=== PATIENT | female | born 1940 | race Caucasian/White ===

== ENCOUNTER → 2020-03-10 15:18 | Outpatient (BNVA) | payer OTHER, SELFPAY | PROVIDERS: PCP Internal Medicine; Referring Provider Registered Nurse; Visit Provider Hospitalist | DX: J44.9 Chronic obstructive pulmonary disease, unspecified (principal); E88.01 Alpha-1-antitrypsin deficiency; C50.919 Malignant neoplasm of unspecified site of unspecified female breast; Z92.3 Personal history of irradiation | CPT/HCPCS: 99212 ==

== ENCOUNTER → 2020-09-09 15:49 | Outpatient (BNVA) | payer OTHER, SELFPAY | PROVIDERS: PCP Internal Medicine; Visit Provider Hospitalist | DX: J41.8 Mixed simple and mucopurulent chronic bronchitis (principal); E88.01 Alpha-1-antitrypsin deficiency; J40 Bronchitis, not specified as acute or chronic | CPT/HCPCS: 99212 ==

== ENCOUNTER → 2021-04-02 09:13 | Outpatient (BNVA) | payer OTHER, SELFPAY | PROVIDERS: PCP Internal Medicine; Visit Provider Hospitalist | DX: Z13.89 Encounter for screening for other disorder (principal) | CPT/HCPCS: Q3014 ==

== ENCOUNTER 2022-03-01 16:40 | Outpatient (REF) | payer OTHER, SELFPAY ==
--- NOTE | ~2022-03-01 | XR_ITS ---
EXAMINATION: XR CHEST CLINICAL INFORMATION: Dyspnea COMPARISON: Reports from previous chest CTA chest x-ray. Images not available. TECHNIQUE: 2 views of the chest were obtained. FINDINGS: The cardiac silhouette is upper normal in size. Hilar and mediastinal contours are unremarkable. There is a oval-shaped density projecting over the left upper lobe and first rib costochondral cartilage measuring 3 x 10 mm questionable for a nodule. This is not appreciated on the lateral view. There is a second nodule in the left midlung measuring 7 mm. There is increased density in projecting over the right upper lobe, right rib first costochondral cartilage and posterior fourth rib. It is uncertain whether this represents a nodule versus artifact due to overlapping bone structures. The lungs are otherwise clear. No pleural effusion or pneumothorax. Thoracolumbar scoliosis and degenerative changes of the spine. XR/XR chest 2V IMPRESSION: Bilateral nodular densities as described above. Unfortunately old chest x-ray and chest CT from [facility] are not available for comparison at this time. Comparison with old exams as initial evaluation recommended.
[2022-03-01 17:06] LABS: MANUAL DIFF FLAG NO
[2022-03-01 20:25] LABS: Basophils Percent Auto 0.7 % (0-2); Eosinophils Absolute Auto 0.1 X10*3/uL (0.0-0.4); Eosinophils Percent Auto 2.4 % (0-4); Hematocrit 30.9 % (37.0-47.0); Imm Gran Abs Auto 0.02 X10*3/uL (0.00-0.03); Imm Gran Pct Auto 0.3 % (0.0-0.4); Lymphocytes Absolute Auto 0.8 X10*3/uL (1.2-4.9); Lymphocytes Percent Auto 14.3 % (20-40); Mean Corpuscular HGB Conc 29.1 g/dl (31.0-35.0); Mean Corpuscular Hemoglobin 22.3 pg (27.0-33.0); Mean Corpuscular Volume 76.5 fL (80.0-98.0); Mean Platelet Volume 9.9 fL (9.4-12.3); Monocytes Absolute Auto 0.3 X10*3/uL (0.1-1.2); Monocytes Percent Auto 5.3 % (2-11); Neutrophils Absolute Auto 4.5 x10*3/uL (2.0-8.3); Platelet Count 216 X10*3/uL (160-400); Red Blood Count 4.04 X10*6/uL (4.20-5.50); Red Cell Distribution Width 17.3 % (11.0-16.0); White Blood Count 5.9 X10*3/uL (4.8-10.8)
[2022-03-01 20:54] LABS: Alanine Aminotransferase 33 U/L (0-31); Albumin Level 3.7 g/dL (3.5-5.0); Alkaline Phosphatase 159 U/L (39-117); Anion Gap 21 (12-20); Aspartate Amino Transferase 46 U/L (5-31); Bilirubin Direct 0.3 mg/dL (0.0-0.5); Bilirubin Total 0.6 mg/dL (0.0-1.0); Blood Urea Nitrogen 15 mg/dL (9-16); Calcium 9.1 mg/dL (8.4-10.2); Carbon Dioxide 18 mmol/L (22-29); Chloride 108 mmol/L (96-108); Estimated Glomerular Filt Rate 36; Glucose Random 154 mg/dL (60-115); Sodium 143 mmol/L (135-145); Total Protein 7.4 g/dL (6.5-8.0)
[2022-03-01 21:20] LABS: Erythrocyte Sedimentation Rate 58 MM/HR (0-20)
[2022-03-08 14:32] LABS: Alpha 1 Anti-trypsin 186 mg/dL (83-199)
== END 2022-03-01 16:41 | disposition home or self-care (01) ==
LOC: HO.XRAY 16:40
PROVIDERS: PCP Internal Medicine; Visit Provider Hospitalist
DX: E88.01 Alpha-1-antitrypsin deficiency (principal); J41.8 Mixed simple and mucopurulent chronic bronchitis; R06.00 Dyspnea, unspecified; R00.0 Tachycardia, unspecified; R01.1 Cardiac murmur, unspecified
CPT/HCPCS: 36415; 71046; 80048; 80076; 82103; 84484; 85025; 85652; 94618; 99212

== ENCOUNTER → 2022-03-08 14:56 | Outpatient (REF) | payer OTHER, SELFPAY ==
--- NOTE | 2022-03-08 15:01 | ECG_ITS ---
Test Reason : dyspnea Blood Pressure : / mmHG Vent. Rate : 098 BPM Atrial Rate : 098 BPM P-R Int : 166 ms QRS Dur : 074 ms QT Int : 362 ms P-R-T Axes : 069 034 069 degrees QTc Int : 462 ms Normal sinus rhythm Nonspecific ST abnormality Abnormal ECG No previous ECGs available Referred By: Elton Crews Electronically Signed By:MARY FUNES MD
== END ==
LOC: HO.CARD 14:56
PROVIDERS: Visit Provider Hospitalist
DX: R06.00 Dyspnea, unspecified (principal)
CPT/HCPCS: 93005

== ENCOUNTER 2022-03-31 16:28 | Outpatient (REF) | payer OTHER, SELFPAY ==
--- NOTE | ~2022-03-31 | CT_ITS ---
EXAMINATION: CT CHEST WITHOUT CONTRAST CLINICAL INFORMATION: Pulmonary nodules COMPARISON: Chest x-ray March 01, 2022 TECHNIQUE: Multidetector volumetric CT imaging of the chest was done. Axial MIP volume rendering provided. Sagittal and coronal reformatted images were obtained. This CT examination was performed using dose optimization techniques as appropriate, variously including the following: *Automated exposure control *Adjustment of mA and/or kV according to patient size (this includes techniques or standardized protocols for targeted exams where dose is matched to indication/reason for exam; i.e. extremities or head) *Use of iterative reconstruction technique DLP: 235 mGy-cm FINDINGS: The heart is normal in size. Coronary artery and mitral annulus calcifications are noted. There is no pericardial effusion. Normal caliber thoracic aorta. There are a few normal-sized mediastinal lymph nodes present. No gross hilar lymphadenopathy. There appears to be postsurgical changes of both breasts. No axillary lymphadenopathy bilaterally. Central airways are patent. Lungs are adequately aerated. Moderate emphysematous changes are noted. There is no lobar consolidation. No pleural effusion or pneumothorax. There is some atelectasis versus scarring of the right lung base with an 8mm nodular focus, nonspecific (image [id number], series 7). There is a 4 mm subpleural pulmonary nodule of the lateral left lung base (image [id number], series 7). There are several calcified pulmonary nodules scattered throughout the lungs. Visualized portion of the upper abdomen demonstrate diffusely decreased liver attenuation suggesting hepatic steatosis. There are coarse calcifications within the hepatic dome which are nonspecific. Splenic calcifications suggest prior granulomatous disease. Partially visualized right renal cyst. Hypodensity of the left kidney is inaccurately characterized. There is a large, wide necked ventral abdominal hernia which contains a portion of the stomach. There is suggestion of mesh from prior hernia repair. There is a well-defined superficial fluid collection anteriorly which is only partially visualized but measures at least 22 x 5 x 10 cm. Diffuse osteopenia. Scoliotic and degenerative changes of the spine. CT/CT chest wo IV con IMPRESSION: 1. Moderate emphysema. 2. There is some atelectasis versus scarring of the right lung base with an 8 mm nodular focus, nonspecific. 3. 4 mm subpleural pulmonary nodule the lateral left lung base. 4. Evidence of prior granulomatous disease. 5. Large, wide necked ventral abdominal hernia which contains a portion of the stomach. 6. There is a well-defined superficial fluid collection anteriorly which is only partially visualized but measures at least 22 x 5 x 10 cm. This is a nonspecific finding but may represent chronic seroma from prior hernia repair surgery. Clinical correlation is recommended. CT imaging of the abdomen and pelvis would be required for a more detailed evaluation of this finding. Fleischner guidelines were followed.
== END 2022-03-31 16:29 | disposition home or self-care (01) ==
LOC: HO.CT 16:28
PROVIDERS: PCP Internal Medicine; Visit Provider Hospitalist
DX: R91.8 Other nonspecific abnormal finding of lung field (principal)
CPT/HCPCS: 71250

== ENCOUNTER → 2022-05-31 14:10 | Outpatient (BNVA) | payer OTHER, SELFPAY | PROVIDERS: PCP Internal Medicine; Visit Provider Internal Medicine Cardiovascular Disease | DX: R06.00 Dyspnea, unspecified (principal); R03.0 Elevated blood-pressure reading, without diagnosis of hypertension; E88.01 Alpha-1-antitrypsin deficiency; J44.9 Chronic obstructive pulmonary disease, unspecified; I10 Essential (primary) hypertension | CPT/HCPCS: 99202 ==

== ENCOUNTER → 2022-07-19 13:00 | Outpatient (REF) | payer OTHER, SELFPAY ==
--- NOTE | 2022-07-19 13:07 | CA_ITS ---
Transthoracic Echocardiogram Patient (Last, First, Middle): Riley Guzman L Gender: Female Date of : 1940 Age: 82 Procedure Date: 07/19/2022 Procedure Type: Transthoracic Echocardiogram Location: OP Height: 152.4 cm Weight: 85.73 kg BSA: 1.82 m2 Heart Rate: 96 bpm BP: 110 / 60 mmHg Management Information Systems Director: LAUREN Referring MD: Zhou Short MD Symptoms: R06.00 - Dyspnea, unspecified Study Quality: Adequate/Contrast ECG Rhythm: Sinus Conclusions: - The left ventricular systolic function is normal. The calculated ejection fraction is 62% by biplane method. - There is mild calcification of the aortic valve. - There is mild mitral annular calcification. Findings Procedure Information Contrast agent, definity, is being given per protocol without apparent complications. Left Ventricle Normal left ventricular cavity size. There is mildly increased left ventricular wall thickness. The left ventricular systolic function is normal. The calculated ejection fraction is 62% by biplane method. There is no evidence of regional wall motion abnormalities. Diastolic function is normal for age. Right Ventricle Normal right ventricular cavity size. There is low normal right ventricular systolic function. Atria Both atria are normal in size. Aortic Valve There is a normal trileaflet aortic valve. There is mild calcification of the aortic valve. There is no aortic valve stenosis. There is no aortic valve regurgitation. Mitral Valve There is mild mitral annular calcification. There is no mitral valve regurgitation. There is no mitral valve stenosis. Pulmonic Valve The pulmonic valve is likely normal. Tricuspid Valve There is mild tricuspid valve regurgitation. There is no evidence of pulmonary hypertension. Great Vessels The asc aorta is normal in size. Venous The inferior vena cava is normal in size and collapses less than 50% with inspiration. Pericardium/Pleural There is no evidence of pericardial effusion. Prior Study Comparison No prior study available for comparison. Measurements 2D Linear Measurements IVSd: 1.29 0.6-0.9/0.6-1.0 cm LVIDd: 3.40 3.9-5.3/4.2-5.9 cm LVIDd Index: 1.87 2.4-3.2/2.2-3.1 cm/m2 LVIDs: 1.68 2.0-3.6 cm LVPWd: 1.16 0.7-1.1 cm LA Diam: 3.20 2.7-3.8/3.0-4.0 cm LAIDs Index: 1.76 1.5-2.3 cm/m2 LV Mass: 167.33 67-162/88-224 g LV Mass Index: 91.94 43-95/49-115 g/m2 LVOT Diam: 1.90 3.0+(-)1.3 cm 2D Systolic Function EF 4C: 58.50 >55% EF 2C: 65.90 >55% EF BiP: 61.70 >55% Mitral Valve MV Pk E: 0.83 MV PK A: 1.22 MV Decel Time: 157.00 E/A: 0.70 E'Lateral: 7.01 E'Medial: 6.40 E/E' Med: 13.00 E/E' Lat: 11.90 PHT: 46.00 MVA PHT: 4.78 [place]: 5.29 Aortic Valve AoV Pk Vipin: 1.29 AoV Mn Vipin: 1.00 AoV VTI: 0.23 AoV Pk Grad: 7.00 Aov Mn Grad: 4.00 RUBENS Cont.VTI: 2.48 LVOT LVOT Pk Vipin: 1.18 LVOT Mn Vipin: 0.86 LVOT VTI: 0.20 LVOT Pk Grad: 6.00 LVOT Mn Grad: 3.00 LVOT Diam: 1.90 LVOT Area: 2.84 Diastolic Function MV Pk E: 0.83 MV Pk A: 1.22 E/A: 0.70 E'Medial: 6.40 E/E' Med: 13.00 E' Laterial: 7.01 E/E' Lat: 11.90 Right Ventricle TAPSE (mm): 16.50 TVS' Vipin: 11.90 Tricuspid Valve TR Pk Vipin: 2.38 TR Pk Grad: 23.00 RA Press: 8.00 RVSP: 31.00 Great Vessels Aorta Sinus of Valsalva: 2.70 2.0-3.5 cm Ao Asc: 3.00 2.1-3.4 cm Pulmonary Valve PV Pk Vipin: 0.79 Peak PV Grad: 2.00 Updated in Other Vendor System with Status of Final Branden Harper MD electronically signed on 07/20/2022 12:18:20 PM with status of Final
== END ==
LOC: HO.CARD 13:00
PROVIDERS: Visit Provider Internal Medicine Cardiovascular Disease
DX: R06.00 Dyspnea, unspecified (principal)
CPT/HCPCS: 93306; Q9957

== ENCOUNTER → 2022-08-02 09:53 | Outpatient (REF) | payer OTHER, SELFPAY ==
--- NOTE | ~2022-08-02 | NM_ITS ---
Lexiscan Myocardial perfusion study Indication: Shortness of breath, assess for coronary disease and ischemia Technique: The patient was brought in for a Lexiscan perfusion study on 08/02/2022 and was injected 0.4 mg of Lexiscan intravenously. Within a minute of this injection 30 mCi of sestamibi was given intravenously. Images were obtained using the SPECT gamma camera interlaced with the gating device. Images were obtained in supine position. Resting perfusion study was performed on 08/04/2022. Patient was administered 30 mCi of sestamibi intravenously at rest. Images were then obtained in supine position. Images were processed with the software and compared side to side in short axis, horizontal long axis and vertical long axis views. Total DLP 118mGy-cm. Findings: Raw acquisition reviewed. Left arm by the patient's side. The stress perfusion study showed no significant no significant perfusion abnormality. Both uncorrected as well as CT attenuation corrected images were reviewed. The gated study shows normal LV systolic function with calculated LVEF of 72%. LV cavity is normal in size. The gated study shows normal wall thickening and contraction of segments. Resting study shows no significant perfusion abnormality. Both uncorrected as well as CT attenuation corrected images were reviewed. Gating at rest reveals normal wall motion with ejection fraction at 56%. The findings are consistent with no reversible or fixed perfusion abnormality. NM/NM nehal perf SPECT rest & str Impression: 1. Myocardial perfusion imaging study shows normal myocardial perfusion. 2. Gated LVEF is 72% during stress and 56% during rest. 3. Transient ischemic dilatation not present. EKG component of the test reported separately.
--- NOTE | 2022-08-02 09:56 | CA_ITS ---
Acquisition Time: 2022-08-02 10:36:13 Total Exercise Time: 00:02:00 Test Indications: CP TACHYCARDIA Medications: SEE H Protocol: LEXISCAN Max HR: 114 BPM 82% of Pred: 138 BPM Max BP: 118/064 mmHG Max Work Load: 1.0 METS Pharmacological stress test with Lexiscan injection while patient is sitting and kicking her legs, without anignal symptoms, without arryhtmias, with normotensive response to injection, with nondiagnostic EKG for ischemia. In recovery the Lexiscan was reversed with Aminophylline 75mg IVP. Nuclear images pending. Test reviewed with Dr. Short. Referred By: Zhou Short Overread By: HEATHER ESPINOZA
== END ==
LOC: HO.CARD 09:53
PROVIDERS: Visit Provider Internal Medicine Cardiovascular Disease
DX: R06.00 Dyspnea, unspecified (principal)
CPT/HCPCS: 78452; 93017; A9500; J0280; J2785

== ENCOUNTER → 2022-08-16 15:18 | Outpatient (BNVA) | payer OTHER, SELFPAY | PROVIDERS: PCP Internal Medicine; Visit Provider Internal Medicine Cardiovascular Disease | DX: R06.00 Dyspnea, unspecified (principal) | CPT/HCPCS: 99212 ==

== ENCOUNTER 2023-03-28 14:58 | Outpatient (AMB) | payer OTHER, SELFPAY ==
[2023-03-28 15:12] VITALS: PULSE 90; O2SAT 96; BMI 36.1
--- NOTE | 2023-03-28 15:12 | MHC.OFFVIS ---
Intake Vital Signs 03/28/23 15:12 Height 5 ft Weight 185 lb BMI 36.1 Pulse 90 Pulse Source Pulse Oximeter Pulse Oximetry (%) 96 Oxygen Delivery Method Room Air Intake Visit Reasons: copd Adaptive Physical Education Teacher Required: No Allergies alprazolam [Xanax] Allergy (Severe, Verified 03/28/23 15:14) Rash PCN Allergy (Severe, Uncoded 03/28/23 15:14) Swelling Sulfa Drugs Allergy (Severe, Uncoded 03/28/23 15:14) Rash HPI HPI Comments History of Present Illness Details The patient is a 83-year-old woman with a known history of alpha 1 antitrypsin deficiency along with COPD. She is on alpha-1 antitrypsin therapy. She continues to use her respiratory therapy. Has been complaining of dyspnea on exertion. Ofcu-rg-svnrrfqu in severity. Does worsen with activity. She has noticed increased weight gain the last several months. No recent exacerbations or need for prednisone or antibiotics at this time. However, she has been developing significant tenderness over the left breast. She has noticed some swelling and induration. She states that when she was much younger she did have an abscess that required drainage. In the meantime she has been getting chemotherapy for breast cancer at this time. When she finishes her chemotherapy she will have surgery and potentially then radiation therapy. 03/01/2022 the patient is here for a pulmonary follow-up visit. The patient complains of worsening dyspnea on exertion. Appears to be moderate to severe. Denies any chest pains or pressure. Typically shortness of breath gets better with rest.Her sister has been very concerned and she actually came with her. The patient also has been very depressed and has not been wanting to do her typical activities of daily living or even leave the house. There is also question if she is using her medications due to her depression. Her sisters very concerned. During the visit we did go for 6 minutes walk test. Her saturations actually got better with ambulation up to 94%. However her dyspnea was significant 8/10 and 9/10 specially when heart rate increased of 120. it took a while to have a heart rate settle down. On examination sleep was tachycardic and also had a mild murmur. New murmurs new. In view of the findings I will have the patient undergo blood work in addition to a chest x-ray and an EKG. She needs to be referred also to Cardiology for further evaluation. The sister also documents that the patient has had some word-finding issues at times. The episodes are intermittent in the last only minutes. Explained to the patient and also her sister that if she ever has episodes like this she needs to go to the ER for the possibility of a TIA or stroke. This may be red flags that should be taking stairs sleep the patient understands to that if her respiratory symptoms worsen she also needs to go to the ER for further evaluation as the symptoms are pretty significant. In the meantime she will start taking an aspirin and she will follow-up with primary care and also Cardiology. From a off 1 antitrypsin deficiency standpoint we have her undergo blood work to assess her kidney function and also her liver function and also check her alpha-1 levels. 03/28/2023 the patient is here for a pulmonary follow-up visit. The patient complains of worsening dyspnea on exertion. Moderate severity. She is wondering if she needs oxygen. She continues use all respiratory therapy. Without any significant improvement. A few weeks ago she had a lot of shortness of breath and also lower extremity edema. Although, this point her symptoms have improved. We did go for brief walking oximetry the patient did not desaturate enough to require oxygen supplementation. Will go ahead and request an overnight oximetry test. My suspicion is the patient has been having meals on wheels and they have been high in salt intake. I do believe that her lower extremity edema and her shortness of breath are related due to volume overload status. Therefore, we did talk about the importance of low-sodium diet. The patient did take some old Lasix she had at home and therefore her symptoms did improve at that point. All send him some Lasix that she can use for 3 days just to improve her overall volume status. 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 Explained to her again the most important thing to do was to continue with low-sodium diet. The patient also will get the overnight oximetry test to see if she qualifies for oxygen with sleep. She continues to get her alpha-1 infusions. Therapy has been affecting beneficial. Will have to make sure that we check her liver function studies and also chemistries to make sure she is tolerating the medicine well. The patient has last CT scan was back in January 2022 demonstrating multiple pulmonary nodules and emphysema. Therefore, will have her undergo a repeat CT scan of the chest to follow-up with the nodules and also pulmonary function study to assess her COPD and alpha-1 antitrypsin deficiency. [facility] Medical History Abnormal chest x-ray with multiple lung nodules Kxgba-1-ebiyhaymlux deficiency Breast cancer Bronchitis COPD (chronic obstructive pulmonary disease) Depression Dyspnea Murmur Pulmonary nodules Tachycardia Family History Other Hmwyd-7-ebpqbiaznpe deficiency Social History Patient Tobacco Use Status: Former Tobacco user Tobacco use type: Cigarette Years Smoked: 50 years Review of Systems Const Reports fatigue, Denies night sweats and Reports weight gain ENT Denies change in voice, Denies lip swelling, Denies mouth pain, Reports nasal congestion, Reports nasal discharge and Denies tongue swelling Card Denies chest pain, Reports leg edema, Reports dyspnea and Reports dyspnea on exertion Resp Denies change in phlegm color, Denies chest congestion, Reports cough, Reports dyspnea and Reports dyspnea on exertion GI Denies abdominal pain Musc Denies no additional complaints Neuro Denies Neuro-related abnormal movements and Denies Abnormal speech present Psych Reports as per HPI and Reports depression Endo Reports fatigue Juan/Lymph Denies easy bleeding and Denies lymphadenopathy Aller/Immun Denies lip swelling and Denies tongue swelling Physical Exam Vital Signs: Last Vital Signs Pulse 90 03/28/23 15:12 Pulse Ox 96 03/28/23 15:12 Oxygen Delivery Method Room Air 03/28/23 15:12 BMI result Body Mass Index 36.1 Const General: cooperative, comfortable, alert and awake Nutritional Appearance: obese Orientation/consciousness: patient oriented x3 Neck Neck: Yes trachea midline, Yes supple and Yes no JVD Resp Effort & Inspection: normal respiratory effort and prolonged expiratory phase Auscultation: diminished lung sounds Cardio Rate: regular rate and tachycardic Rhythm: regular rhythm Heart sounds: S1 normal heart sound present, S2 normal heart sound present, no click, no gallops and no murmurs GI Auscultation: normal bowel sounds Skin General skin exam: no rashes or lesions noted Neuro General: patient oriented x3 and no focal motor deficits Speech: No Abnormal speech present Extrem General: No clubbing, No cyanosis and Yes edema Office Procedures 6 Minute Walk Time:: 19:49 SPO2 % at rest: 95 Pulse at rest: 101 SPO2 % during excercise: 92 Pulse during excercise: 110 Distance in yards walked: 100 Nata Score: 4 [id number] - 6 Minute Walk Assessment & Plan Assessment & Plan (1) COPD (chronic obstructive pulmonary disease): Code(s): J44.9 - Chronic obstructive pulmonary disease, unspecified Qualifiers: COPD type: chronic bronchitis Chronic bronchitis type: mixed simple and mucopurulent Qualified Code(s): J41.8 - Mixed simple and mucopurulent chronic bronchitis (2) Aakos-7-favpcomzdxl deficiency: Code(s): E88.01 - Zomes-0-igxerezsbdy deficiency (3) Dyspnea: Code(s): R06.00 - Dyspnea, unspecified Qualifiers: Dyspnea type: dyspnea on exertion Qualified Code(s): R06.09 - Other forms of dyspnea (4) Tachycardia: Code(s): R00.0 - Tachycardia, unspecified Plan Aralast qweek Continue Breo and Spiriva Continue Singulair lasix x 3 days overnight oximetry on RA CT chest PFTs F/U 2 months Orders: Orders Overnight Pulse Oximetry Today CT chest wo IV con Today R91.8 - Other nonspecific abnormal finding of lung field PFT pulmonary function test Today E88.01 - Xbrwm-9-hwbltuetyoq deficiency Medications: New furosemide (Lasix) 20 mg PO DAILY 7 tabs 0RF 7 days E88.01 - Mxwnp-5-qwdbgfrohtt deficiency Coding Level of Care Code Est Pt Level 4 (31585) Diagnoses Mixed simple and mucopurulent chronic bronchitis J41.8 COPD type: chronic bronchitis Chronic bronchitis type: mixed simple and mucopurulent Eklrz-5-pzyhjryjuty deficiency E88.01 Dyspnea on exertion R06.09 Dyspnea type: dyspnea on exertion Tachycardia R00.0 CPT Codes Coding ([id number]) Time Spent (min) 18
[2023-03-28 19:48] VITALS: PULSE 101; O2SAT 95
== END 2023-03-28 15:49 | disposition home or self-care (01) ==
PROVIDERS: PCP Internal Medicine; Visit Provider Hospitalist
DX: J41.8 Mixed simple and mucopurulent chronic bronchitis (principal); E88.01 Alpha-1-antitrypsin deficiency; R06.09 Other forms of dyspnea; R00.0 Tachycardia, unspecified
CPT/HCPCS: 94618; 99214

== ENCOUNTER → 2023-03-28 14:58 | Outpatient (BNVA) | payer OTHER, SELFPAY | PROVIDERS: PCP Internal Medicine; Visit Provider Hospitalist | DX: J41.8 Mixed simple and mucopurulent chronic bronchitis (principal); E88.01 Alpha-1-antitrypsin deficiency; R06.09 Other forms of dyspnea; R00.0 Tachycardia, unspecified | CPT/HCPCS: 94618; 99212 ==

== ENCOUNTER 2023-07-11 14:49 | Outpatient (AMB) | payer OTHER, SELFPAY ==
[2023-07-11 15:03] VITALS: PULSE 92; O2SAT 94; BMI 35.9
--- NOTE | 2023-07-11 15:03 | A.OFFVIS_ITS ---
Intake Vital Signs 07/11/23 15:03 Height 5 ft Weight 184 lb BMI 35.9 Pulse 92 Pulse Source Pulse Oximeter Pulse Oximetry (%) 94 Oxygen Delivery Method Room Air Intake Visit Reasons: copd Early Morning Required: No Allergies alprazolam [Xanax] Allergy (Severe, Verified 07/11/23 15:05) Rash PCN Allergy (Severe, Uncoded 07/11/23 15:05) Swelling Sulfa Drugs Allergy (Severe, Uncoded 07/11/23 15:05) Rash HPI HPI Comments History of Present Illness Details The patient is a 83-year-old woman with a known history of alpha 1 antitrypsin deficiency along with COPD. She is on alpha-1 antitrypsin therapy. She continues to use her respiratory therapy. Has been complaining of dyspnea on exertion. Mtcy-ag-xwvoevsn in severity. Does worsen with activity. She has noticed increased weight gain the last several months. No recent exacerbations or need for prednisone or antibiotics at this time. However, she has been developing significant tenderness over the left breast. She has noticed some swelling and induration. She states that when she was much younger she did have an abscess that required drainage. In the meantime she has been getting chemotherapy for breast cancer at this time. When she finishes her chemotherapy she will have surgery and potentially then radiation therapy. 03/01/2022 the patient is here for a pulm onary follow-up visit. The patient complains of worsening dyspnea on exertion. Appears to be moderate to severe. Denies any chest pains or pressure. Typically shortness of breath gets better with rest.Her sister has been very concerned and she actually came with her. The patient also has been very depressed and has not been wanting to do her typical activities of daily living or even leave the house. There is also question if she is using her medications due to her depression. Her sisters very concerned. During the visit we did go for 6 minutes walk test. Her saturations actually got better with ambulation up to 94%. However her dyspnea was significant 8/10 and 9/10 specially when heart rate increased of 120. it took a while to have a heart rate settle down. On examination sleep was tachycardic and also had a mild murmur. New murmurs new. In view of the findings I will have the patient undergo blood work in addition to a chest x- ray and an EKG. She needs to be referred also to Cardiology for further evaluation. The sister also documents that the patient has had some word- finding issues at times. The episodes are intermittent in the last only minutes. Explained to the patient and also her sister that if she ever has episodes like this she needs to go to the ER for the possibility of a TIA or stroke. This may be red flags that should be taking stairs sleep the patient understands to that if her respiratory symptoms worsen she also needs to go to the ER for further evaluation as the symptoms are pretty significant. In the meantime she will start taking an aspirin and she will follow-up with primary care and also Cardiology. From a off 1 antitrypsin deficiency standpoint we have her undergo blood work to assess her kidney function and also her liver function and also check her alpha-1 levels. 03/28/2023 the patient is here for a pulmonary follow-up visit. The patient complains of worsening dyspnea on exertion. Moderate severity. She is wondering if she needs oxygen. She continues use all respiratory therapy. Without any significant improvement. A few weeks ago she had a lot of shortness of breath and also lower extremity edema. Although, this point her symptoms have improved. We did go for brief walking oximetry the patient did not desaturate enough to require oxygen supplementation. Will go ahead and request an overnight oximetry test. My suspicion is the patient has been having meals on wheels and they have been high in salt intake. I do believe that her lower extremity edema and her shortness of breath are related due to volume overload status. Therefore, we did talk about the importance of low-sodium diet. The patient did take some old Lasix she had at home and therefore her symptoms did improve at that point. All send him some Lasix that she can use for 3 days just to improve her overall volume status. She will talk to her primary care gang worker regarding additional diuresis. Explained to her again the most important thing to do was to continue with low-sodium diet. The patient also will get the overnight oximetry test to see if she qualifies for ox ygen with sleep. She continues to get her alpha-1 infusions. Therapy has been affecting beneficial. Will have to make sure that we check her liver function studies and also chemistries to make sure she is tolerating the medicine well. The patient has last CT scan was back in January 2022 demonstrating multiple pulmonary nodules and emphysema. Therefore, will have her undergo a repeat CT scan of the chest to follow-up with the nodules and also pulmonary function study to assess her COPD and alpha-1 antitrypsin deficiency. 07/11/2023 the patient is here for a pulmonary follow-up visit. Overall she is doing okay. She does complaint of dyspnea on exertion. Moderate severity. She is also being very careful because she has difficulty walking. She does use a cane although she should be using a walker per her sister. The patient did have a bone density test demonstrating some osteoporosis already. I did emphasize the point. In the meantime she continues with her augmentation t herapy for alpha-1 antitrypsin deficiency. She tolerates the therapy well on a weekly basis. Has not had any issues with access. We did look at her blood work that she had a [facility]. Back in November her AST and alk phosphatase was slightly elevated. Otherwise her chemistries were better and creatinine function appeared to be normal. Will go ahead and repeat her blood work at this time. the patient was wondering about the level of COPD. She has not had PFTs in a few years. Will go ahead and request PFTs for her next visit. She should also have a chest x-ray. Her last CT scan of the chest back in 2021 and was stable Pulmonary nodules and emphysema. [facility] Medical History Abnormal chest x-ray with multiple lung nodules Qlefq-8-fclbtkrpdtg deficiency Breast cancer Bronchitis COPD (chronic obstructive pulmonary disease) Depression Dyspnea Murmur Pulmonary nodules Tachycardia Family History Other Siuxt-9-jupqldfznzo deficiency Social History Patient Tobacco Use Status: Former Tobacco user Tobacco use type: Cigarette Years Smoked: 50 years Review of Systems Const Reports fatigue, Denies night sweats and Reports weight gain ENT Denies change in voice, Denies lip swelling, Denies mouth pain, Reports nasal congestion, Reports nasal discharge and Denies tongue swelling Card Denies chest pain, Reports leg edema, Reports dyspnea and Reports dyspnea on exertion Resp Denies change in phlegm color, Denies chest congestion, Reports cough, Reports dyspnea and Reports dyspnea on exertion GI Denies abdominal pain Musc Reports abnormal gait Neuro Denies Neuro-related abnormal movements, Denies Abnormal speech present and Reports abnormal gait Psych Reports as per HPI and Reports depression Endo Reports fatigue Juan/Lymph Denies easy bleeding and Denies lymphadenopathy Aller/Immun Denies lip swelling and Denies tongue swelling Physical Exam Vital Signs: Last Vital Signs Pulse 92 07/11/23 15:03 Pulse Ox 94 07/11/23 15:03 Oxygen Delivery Method Room Air 07/11/23 15:03 BMI result Body Mass Index 35.9 Const General: cooperative, comfortable, alert and awake Nutritional Appearance: obese Orientation/consciousness: patient oriented x3 Neck Neck: Yes trachea midline, Yes supple and Yes no JVD Resp Effort & Inspection: normal respiratory effort and prolonged expiratory phase Auscultation: diminished lung sounds Cardio Rate: regular rate and tachycardic Rhythm: regular rhythm Heart sounds: S1 normal heart sound present, S2 normal heart sound present, no click, no gallops and no murmurs GI Auscultation: normal bowel sounds Skin General skin exam: no rashes or lesions noted Neuro General: patient oriented x3 and no focal motor deficits Speech: No Abnormal speech present Extrem General: No clubbing, No cyanosis and Yes edema Assessment & Plan Assessment & Plan (1) COPD (chronic obstructive pulmonary disease): Code(s): J44.9 - Chronic obstructive pulmonary disease, unspecified Qualifiers: COPD type: chronic bronchitis Chronic bronchitis type: mixed simple and mucopurulent Qualified Code(s): J41.8 - Mixed simple and mucopurulent chronic bronchitis (2) Dyspnea: Code(s): R06.00 - Dyspnea, unspecified Qualifiers: Dyspnea type: dyspnea on exertion Qualified Code(s): R06.09 - Other forms of dyspnea (3) Tachycardia: Code(s): R00.0 - Tachycardia, unspecified (4) Mapnq-1-dxeldryoatz deficiency: Code(s): E88.01 - Lkiqi-6-dikbabgtthr deficiency (5) Pulmonary nodules: Code(s): R91.8 - Other nonspecific abnormal finding of lung field Plan Aralast qweek Continue Breo and Spiriva Continue Singulair CXR PFTs Bloodwork F/U 3 months Orders: Orders Erythrocyte Sedimentation Rate Today E88.01 - Hpzpl-5-yjcmbpfjzul deficiency XR chest 2V Today R91.8 - Other nonspecific abnormal finding of lung field PFT pulmonary function test Today E88.01 - Revne-9-luxliyyeerz deficiency Basic Metabolic Panel Today E88.01 - Angla-6-jqrfwjmghfa deficiency Liver Panel Today E88.01 - Olrei-3-tjckozvhbvk deficiency Alpha 1 Anti-trypsin Today E88.01 - Wtwvv-3-rzebzgysmev deficiency Coding Level of Care Code Est Pt Level 4 (69123) Diagnoses Mixed simple and mucopurulent chronic bronchitis J41.8 COPD type: chronic bronchitis Chronic bronchitis type: mixed simple and mucopurulent Dyspnea on exertion R06.09 Dyspnea type: dyspnea on exertion Tachycardia R00.0 Rwiod-8-zywqsmzyirj deficiency E88.01 Pulmonary nodules R91.8 Time Spent (min) 17
== END 2023-07-11 15:34 | disposition home or self-care (01) ==
PROVIDERS: PCP Internal Medicine; Visit Provider Hospitalist
DX: J41.8 Mixed simple and mucopurulent chronic bronchitis (principal); R06.09 Other forms of dyspnea; R00.0 Tachycardia, unspecified; E88.01 Alpha-1-antitrypsin deficiency; R91.8 Other nonspecific abnormal finding of lung field
CPT/HCPCS: 99214

== ENCOUNTER → 2023-07-11 14:49 | Outpatient (BNVA) | payer OTHER, SELFPAY | PROVIDERS: PCP Internal Medicine; Visit Provider Hospitalist | DX: J41.8 Mixed simple and mucopurulent chronic bronchitis (principal); R06.09 Other forms of dyspnea; R00.0 Tachycardia, unspecified; E88.01 Alpha-1-antitrypsin deficiency; R91.8 Other nonspecific abnormal finding of lung field | CPT/HCPCS: 99212 ==

== ENCOUNTER 2023-12-27 15:15 | Outpatient (AMB) | payer OTHER, SELFPAY ==
--- NOTE | 2023-12-27 15:16 | MHC.OFFVIS ---
Vital Signs 12/27/23 15:17 Height 5 ft Weight 177 lb 8 oz BMI 34.7 BP 128/64 Blood Pressure Location Rt brachial Position Sitting Pulse 81 Pulse Source Pulse Oximeter Pulse Oximetry (%) 96 Oxygen Delivery Method Room Air Intake Visit Reasons: Increased shortness of breath Allergies alprazolam [Xanax] Allergy (Severe, Verified 12/27/23 15:23) Rash PCN Allergy (Severe, Uncoded 12/27/23 15:23) Swelling Sulfa Drugs Allergy (Severe, Uncoded 12/27/23 15:23) Rash HPI HPI Increased shortness of breath: Details: Riley is a pleasant 83 year old, never smoker, with underlying alpha 1 antitrypsin deficiency, COPD and h/o breast cancer. She is under he care of Dr. Crews and presents for an acute visit. She was previously prescribed Breo and Spiriva, however reports she has not been using for months. She attributes this to depression and unmotivated to use. She does admit that she has more help on a daily basis and will attempt to restart respiratory regimen. She also reports worsening BLE edema for the last 1.5 months and notes dyspnea has been worsening for 1 month. She denies fevers, chills or sick contacts. She denies wheezing, cough or chest tightness. [facility] Medical History Abnormal chest x-ray with multiple lung nodules Zhjdi-1-szfffjrmhgk deficiency Breast cancer Bronchitis COPD (chronic obstructive pulmonary disease) Depression Dyspnea Murmur Pulmonary nodules Tachycardia Family History Other Mychr-9-vbszxaulhag deficiency Social History Patient Tobacco Use Status: Former Tobacco user Tobacco use type: Cigarette Years Smoked: 50 years Review of Systems Const Denies chills, Denies excessive sweating, Denies fever(s), Denies headache(s) and Denies night sweats Eyes Denies dry eyes, Denies irritation and Denies itchy eyes ENT Reports Normal hearing present, Denies headache(s), Denies nasal congestion, Denies nasal discharge, Denies post nasal drip and Denies sore throat Card Denies chest pain, Denies chest pain at rest, Denies chest pain with activity, Denies claudication, Reports leg edema, Reports dyspnea on exertion, Denies orthopnea and Denies paroxysmal nocturnal dyspnea Resp Denies chest congestion, Denies cough, Denies excessive phlegm production, Denies pain on inspiration, Denies pain with cough, Reports dyspnea on exertion, Denies stridor and Denies wheezing Musc Denies myalgias Neuro Reports Normal hearing present and Denies headache(s) Endo Denies excessive sweating Juan/Lymph Denies lymphadenopathy Aller/Immun Denies itchy eyes, Denies seasonal rhinorrhea and Denies wheezing Physical Exam Vital Signs: Last Vital Signs Pulse 81 12/27/23 15:17 BP 128/64 12/27/23 15:17 Pulse Ox 96 12/27/23 15:17 Oxygen Delivery Method Room Air 12/27/23 15:17 BMI result Body Mass Index 34.7 Const General: cooperative, healthy appearing, comfortable, no acute distress, well developed and alert Nutritional Appearance: obese Orientation/consciousness: patient oriented x3 HEENT Head: Yes normal to inspection, Yes normocephalic and Yes atraumatic Ears: hearing grossly normal bilaterally and external ears normal Eyes General: appearance normal, both eyes and all related structures Eyelids: Yes eyelids normal Sclerae: sclerae normal EOM: EOMs intact bilaterally Neck Neck: Yes normal visual inspection and Yes no lymphadenopathy Lymphatic: no lymphadenopathy noted Chest Chest palpation & inspection: normal inspection of the chest Resp Effort & Inspection: normal respiratory effort, able to speak in complete sentences, no audible wheezes, no cough, no stridor, not tachypneic, no tripod positioning and no use of accessory muscles Auscultation: clear to auscultation bilaterally Cardio Jugular venous distension: no JVD Rate: regular rate Rhythm: regular rhythm Skin Other: warm, dry General skin exam: no rashes or lesions noted Neuro General: patient oriented x3 Cranial nerves: Yes Normal hearing present Cognition (Neuro): normal cognition Gait exam (Neuro): Normal gait present Extrem Other: 1+ pedal edema Psych Appearance: grossly normal and well kempt Speech and movement: Normal speech and movement present and Clear speech present Affect: normal affect Attitude: cooperative Thought process: Normal thought process present Thought content: Normal thought content present Insight: Good insight present (Psych) Judgement: Good judgement present (Psych) Assessment & Plan Assessment & Plan (1) COPD (chronic obstructive pulmonary disease): Code(s): J44.9 - Chronic obstructive pulmonary disease, unspecified Category: Medical Qualifiers: COPD type: chronic bronchitis Chronic bronchitis type: mixed simple and mucopurulent Qualified Code(s): J41.8 - Mixed simple and mucopurulent chronic bronchitis (2) Dyspnea: Code(s): R06.00 - Dyspnea, unspecified Category: Medical Qualifiers: Dyspnea type: dyspnea on exertion Qualified Code(s): R06.09 - Other forms of dyspnea (3) Axurt-0-ncqzupzqwsi deficiency: Code(s): E88.01 - Hsscl-2-jvslrysqjty deficiency Category: Medical Plan Riley's symptoms are likely multifactorial with pulmonary and cardiac contribution. Will refill inhalers and encouraged to restart. If symptoms worsening will send for CXR. Will send for echo to assess for cardiac etiology contributing to dyspnea. All questions were answered and patient is in agreement of plan. Will have close follow up in 2-4 weeks or sooner if needed. Orders: Orders CA echo transthoracic complete Today R06.00 - Dyspnea, unspecified Medications: New tiotropium bromide (Spiriva with HandiHaler) puncture 1 cap using device; one dose = 2 inhalations 1 cap inhalation DAILY 60 inhalations 0RF fluticasone furoate-vilanterol 100-25 mcg/dose (Breo Ellipta) 1 inh inhalation DAILY 60 ea 3RF Coding Level of Care Code Est Pt Level 4 (95355) Diagnoses Mixed simple and mucopurulent chronic bronchitis J41.8 COPD type: chronic bronchitis Chronic bronchitis type: mixed simple and mucopurulent Dyspnea on exertion R06.09 Dyspnea type: dyspnea on exertion Ktymr-3-ltlqbzjkzfv deficiency E88.01
[2023-12-27 15:17] VITALS: BP 128/64; PULSE 81; O2SAT 96; BMI 34.7
== END 2023-12-27 16:19 | disposition home or self-care (01) ==
PROVIDERS: PCP Internal Medicine; Visit Provider Nurse Practitioner Family
DX: J41.8 Mixed simple and mucopurulent chronic bronchitis (principal); R06.09 Other forms of dyspnea; E88.01 Alpha-1-antitrypsin deficiency
CPT/HCPCS: 99214

== ENCOUNTER → 2023-12-27 15:15 | Outpatient (BNVA) | payer OTHER, SELFPAY | PROVIDERS: PCP Internal Medicine; Visit Provider Nurse Practitioner Family | DX: J41.8 Mixed simple and mucopurulent chronic bronchitis (principal); R06.09 Other forms of dyspnea; E88.01 Alpha-1-antitrypsin deficiency | CPT/HCPCS: 99212 ==